=== PATIENT | female | born 1930 | race Caucasian/White ===

== ENCOUNTER 2016-04-10 16:13 | Emergency (ER) | payer MEDICARE ==
[2016-04-10 16:15] VITALS: BP 102/56; PULSE 104; RESP 18; TEMP 98.3; O2SAT 95
--- NOTE | 2016-04-10 16:50 | PD ---
HPI Chief Complaint: General Weakness Time Seen by Provider: 16:50 Travel History International Travel<30 days: No Contact w/Intl Traveler<30days: No Traveled to known affect area: No History of Present Illness HPI 86 year old female with history of Alzheimer's disease presents to the emergency department with her son for evaluation. The son states that they are on vacation here in the mother has not gotten out of bed for 3 days. He states that she has not been eating or drinking. He is concerned that something may be wrong. He states she has not been recently ill. She is typically ambulatory but seems to have decreased strength and stamina lately. He states that she does not have a primary care provider back home but they plan to return home on Monday or of this week.. The patient reports no pain. States that she is fine. She has no other history to report. PFSH Past Medical History Alzheimer's Disease: Yes Menopausal: Yes Past Surgical History Appendectomy: Yes Tonsillectomy: Yes Social History Alcohol Use: No Tobacco Use: No Substance Use: No Allergies-Medications (Allergen,Severity, Reaction): Coded Allergies: No Known Allergies (Unverified , 04/10/16) Reported Meds & Prescriptions Reported Meds & Active Scripts Active Keflex (Cephalexin) 500 Mg Cap 500 Mg PO Q12H 7 Days Reported Fosamax (Alendronate Sodium) 70 Mg Tab 70 Mg PO Q7D Donepezil 5 Mg Tab 5 Mg PO DAILY Review of Systems Except as stated in HPI: all other systems reviewed are Neg Physical Exam Narrative GENERAL: Well-nourished, elderly female patient, in no acute distress. SKIN: Warm and dry. HEAD: Atraumatic. Normocephalic. EYES: Pupils equal and round. No scleral icterus. No injection or drainage. ENT: No nasal bleeding or discharge. Mucous membranes pink and moist. NECK: Trachea midline. No JVD. CARDIOVASCULAR: Elevated rate and rhythm. No murmur appreciated. RESPIRATORY: No accessory muscle use. Clear to auscultation. Breath sounds equal bilaterally. GASTROINTESTINAL: Abdomen soft, non-tender, nondistended. Hepatic and splenic margins not palpable. MUSCULOSKELETAL: No obvious deformities. No clubbing. No cyanosis. No edema. NEUROLOGICAL: Awake and alert. No obvious cranial nerve deficits. Motor grossly within normal limits. Normal speech. Data Data Last Documented VS Vital Signs Date Time Temp Pulse Resp B/P Pulse Ox O2 Delivery O2 Flow Rate FiO2 04/10/16 19:48 72 15 116/65 93 04/10/16 17:01 Nasal Cannula 2 04/10/16 16:15 98.3 Orders Electrocardiogram (04/10/16 16:47) Basic Metabolic Panel (Bmp) (04/10/16 16:47) Ckmb (Isoenzyme) Profile (04/10/16 16:47) Complete Blood Count With Diff (04/10/16 16:47) Magnesium (Mg) (04/10/16 16:47) Prothrombin Time / Inr (Pt) (04/10/16 16:47) Act Partial Throm Time (Ptt) (04/10/16 16:47) Troponin I (04/10/16 16:47) Chest, Single Ap (04/10/16 16:47) Ecg Monitoring (04/10/16 16:47) Bilateral Bp Monitoring (04/10/16 16:47) Iv Access Insert/Monitor (04/10/16 16:47) Oximetry (04/10/16 16:47) Oxygen Administration (04/10/16 16:47) Sodium Chloride 0.9% Flush (Ns Flush) (04/10/16 17:00) Ct Brain W/O Iv Contrast(Rout) (04/10/16 ) Urinalysis - C+S If Indicated (04/10/16 16:47) Cath For Specimen (04/10/16 16:47) CKMB (04/10/16 17:15) CKMB% (04/10/16 17:15) Urine Culture (04/10/16 17:40) Sodium Chlorid 0.9% 500 Ml Inj (Ns 500 M (04/10/16 18:15) Ceftriaxone Inj (Rocephin Inj) (04/10/16 18:15) Labs Laboratory Tests Test 04/10/16 04/10/16 17:15 17:40 White Blood Count 6.6 TH/MM3 Red Blood Count 4.29 MIL/MM3 Hemoglobin 12.9 GM/DL Hematocrit 37.9 % Mean Corpuscular Volume 88.3 FL Mean Corpuscular Hemoglobin 30.0 PG Mean Corpuscular Hemoglobin 34.0 % Concent Red Cell Distribution Width 13.5 % Platelet Count 177 TH/MM3 Mean Platelet Volume 8.2 FL Neutrophils (%) (Auto) 69.7 % Lymphocytes (%) (Auto) 20.3 % Monocytes (%) (Auto) 9.2 % Eosinophils (%) (Auto) 0.4 % Basophils (%) (Auto) 0.4 % Neutrophils # (Auto) 4.6 TH/MM3 Lymphocytes # (Auto) 1.3 TH/MM3 Monocytes # (Auto) 0.6 TH/MM3 Eosinophils # (Auto) 0.0 TH/MM3 Basophils # (Auto) 0.0 TH/MM3 CBC Comment DIFF FINAL Differential Comment Prothrombin Time 10.8 SEC Prothromb Time International 1.0 RATIO Ratio Activated Partial 30.3 SEC Thromboplast Time Sodium Level 139 MEQ/L Potassium Level 4.1 MEQ/L Chloride Level 105 MEQ/L Carbon Dioxide Level 24.9 MEQ/L Anion Gap 9 MEQ/L Blood Urea Nitrogen 29 MG/DL Creatinine 0.97 MG/DL Estimat Glomerular Filtration 54 ML/MIN Rate Random Glucose 108 MG/DL Calcium Level 8.7 MG/DL Magnesium Level 2.0 MG/DL Total Creatine Kinase 109 U/L Creatine Kinase MB 0.7 NG/ML Troponin I LESS THAN 0.02 NG/ML Urine Color YELLOW Urine Turbidity HAZY Urine pH 5.5 Urine Specific [place] 1.021 Urine Protein 30 mg/dL Urine Glucose (UA) NEG mg/dL Urine Ketones NEG mg/dL Urine Occult Blood SMALL Urine Nitrite POS Urine Bilirubin NEG Urine Urobilinogen LESS THAN 2.0 MG/DL Urine Leukocyte Esterase SMALL Urine RBC 1 /hpf Urine WBC 5 /hpf Urine Squamous Epithelial 3 /hpf Cells Urine Bacteria MANY /hpf Urine Hyaline Casts 4 /lpf Urine Mucus MOD /lpf Microscopic Urinalysis Comment CATH-CULTURE IND MDM Medical Decision Making Medical Screen Exam Complete: Yes Emergency Medical Condition: Yes Medical Record Reviewed: Yes Differential Diagnosis Alzheimer disease versus electrolyte abnormality versus dehydration versus UTI Narrative Course 86 year-old female presents to emergency department for evaluation. Patient appears well and without distress. She has pleasant. She initially has slightly elevated heart rate. Vital signs otherwise stable. CBC and BMP are without acute concern except patient does have slightly elevated BUN at 29.. Troponin is less than 0.02. Urinalysis is hazy with 30 proteinuria, small occult blood, positive nitrate, small leukocyte esterase, many bacteria, moderate mucus. Culture is indicated. Patient is given 1 g of Rocephin here in the emergency department and she'll be discharged home on Keflex. I have discussed with the son the importance of following up with a primary care provider upon return home. He agrees to return immediately with any acute worsening of symptoms. Diagnosis Primary Impression: Generalized weakness Additional Impression: UTI (urinary tract infection) Qualified Code: N39.0 - Urinary tract infection without hematuria, site unspecified Referrals: Primary Care Physician Patient Instructions: General Instructions, Urinary Tract Infection in Women ( ED) Additional Instructions: Maintain adequate oral hydration Follow-up your primary care provider Return immediately to the emergency department with any acute worsening of symptoms Med/Other Pt SpecificInfo: Prescription(s) given Scripts Cephalexin (Keflex)500 Mg [id number] Mg PO Q12H 7 Days Ref 0 Prov:Lucila Toscano 04/10/16 Disposition: 01 DISCHARGE HOME Condition: Stable Lucila Toscano Apr 10, 2016 16:50
[2016-04-10 16:57] VITALS: BP_SYST 100; BP_SYST 99; BP_DIAS 63; BP_DIAS 66
[2016-04-10] MEDS ORDERED: SODIUM CHLORIDE 0.9% FLUSH 5 ML FLUSH IVF PRN (17:00)
[2016-04-10 17:01] VITALS: RESP 16; O2SAT 96
--- NOTE | 2016-04-10 17:06 | RADRPT ---
EXAM DATE/TIME: 04/10/2016 16:49 [facility] COMPARISON: No previous studies available for comparison. INDICATIONS : General weakness and confusion. MEDICAL HISTORY : None. SURGICAL HISTORY : None. ENCOUNTER: Initial ACUITY: 1 day PAIN SCORE: 0/10 LOCATION: Bilateral chest FINDINGS: The lungs are hyperinflated but clear. The heart and pulmonary vascularity are normal. Degenerative changes are seen about the left shoulder. CONCLUSION: Hyperinflated, otherwise negative. Cali Chong MD FACR on April 10, 2016 at 17:04 Board Certified Radiologist. This report was verified electronically.
[2016-04-10 17:27] LABS: AUTOMATED NEUTROPHIL # 4.6 TH/MM3 (1.8-7.7); BASOPHIL % 0.4 % (0.0-2.0); EOSINOPHIL % 0.4 % (0.0-4.0); HEMATOCRIT 37.9 % (35.0-46.0); HEMO FLAGS DIFF FINAL; LYMPH % 20.3 % (9.0-44.0); LYMPHOCYTE # 1.3 TH/MM3 (1.0-4.8); MEAN CELL VOLUME 88.3 FL (80.0-100.0); MONO % 9.2 % (0.0-8.0); NEUT % 69.7 % (16.0-70.0); PLATELET COUNT 177 TH/MM3 (150-450); RED BLOOD COUNT 4.29 MIL/MM3 (4.00-5.30); RED CELL DISTRIBUTION WIDTH 13.5 % (11.6-17.2); WHITE BLOOD COUNT 6.6 TH/MM3 (4.0-11.0)
[2016-04-10 17:42] LABS: APTT (PATIENT) 30.3 SEC (24.3-30.1); PROTHROMBIN TIME - PATIENT 10.8 SEC (9.8-11.6)
--- NOTE | 2016-04-10 17:43 | RADRPT ---
EXAM DATE/TIME: 04/10/2016 17:36 [facility] COMPARISON: No previous studies available for comparison. INDICATIONS : Dizziness, loss of appitite. RADIATION DOSE: 29.28 CTDIvol (mGy) MEDICAL HISTORY : Alzheimer's SURGICAL HISTORY : Tonsillectomy. ENCOUNTER: Initial ACUITY: 1 day PAIN SCALE: Non-responsive LOCATION: cranial TECHNIQUE: Multiple contiguous axial images were obtained of the head. Using automated exposure control and adj ustment of the mA and/or kV according to patient size, radiation dose was kept as low as reasonably a chievable to obtain optimal diagnostic quality images. FINDINGS: CEREBRUM: The ventricles are normal for age. No evidence of midline shift, mass lesion, hemorrhage or acute in farction. No extra-axial fluid collections are seen. POSTERIOR FOSSA: The cerebellum and brainstem are intact. The 4th ventricle is midline. The cerebellopontine angle i s unremarkable. EXTRACRANIAL: The visualized portion of the orbits is intact. SKULL: The calvaria is intact. No evidence of skull fracture. CONCLUSION: Negative for an acute process. Cali Chong MD FACR on April 10, 2016 at 17:41 Board Certified Radiologist. This report was verified electronically.
[2016-04-10 17:51] LABS: ANION GAP 9 MEQ/L (5-15); BICARBONATE 24.9 MEQ/L (21.0-32.0); BLOOD UREA NITROGEN 29 MG/DL (7-18); CHLORIDE 105 MEQ/L (98-107); GLOMERULAR FILTRATION RATE 54 ML/MIN (>89); POTASSIUM 4.1 MEQ/L (3.5-5.1); SODIUM (NA) 139 MEQ/L (136-145)
[2016-04-10 17:54] LABS: CREATINE KINASE 109 U/L (26-192)
[2016-04-10 17:59] LABS: BACTERIA, URINE MANY /hpf; BLOOD, URINE SMALL (NEG); COMMENT (UR) CATH-CULTURE IND; CULTURE IF INDICATED CATH CULTURE IND; GLUCOSE,URINE NEG (NEG); HYALINE CAST, URINE 4 /lpf (RARE); KETONE, URINE NEG (NEG); MUCUS URINE MOD /lpf (OCC); NITRITE,URINE POS (NEG); PH, URINE 5.5 (5.0-8.5); SQUAMOUS EPITHELIAL CELL URINE 3 /hpf (0-5); URINE COLOR YELLOW (YELLW/STRAW)
[2016-04-10 18:07] LABS: CKMB 0.7 NG/ML (0.5-3.6)
[2016-04-10] MEDS ORDERED: cefTRIAXone INJ 1,000 MG in SODIUM CHLORIDE 0.9% INJ 100 ML IV ONE (18:15)
[2016-04-10] MEDS ORDERED: SODIUM CHLORID 0.9% 500 ML INJ 500 ML IV ONE (18:15)
[2016-04-10] MEDS ORDERED: DONE5TAB7 PO (18:26)
[2016-04-10] MEDS ORDERED: FOSA70TA PO (18:26)
[2016-04-10] MEDS ORDERED: CEPH-460 PO (19:35)
[2016-04-10 19:48] VITALS: BP 116/65
--- NOTE | 2016-04-11 19:34 | EKG ---
Date Performed: 04/10/2016 Time Performed: 18:04:07 PTAGE: 86 years EKG: Sinus rhythm NORMAL ECG NO PREVIOUS TRACING DOCTOR: Sunday Ndiaye Interpretating Date/Time 04/11/2016 19:31:40
== END 2016-04-10 20:13 | disposition home or self-care (01) ==
LOC: NEPC 16:13
DX: R53.1 Weakness (principal); N39.0 Urinary tract infection, site not specified; B96.1 Klebsiella pneumoniae [K. pneumoniae] as the cause of diseases classified elsewhere; G30.9 Alzheimer's disease, unspecified; R00.0 Tachycardia, unspecified; R94.4 Abnormal results of kidney function studies
CPT/HCPCS: 70450; 71010; 80048; 81001; 82550; 82552; 83735; 84484; 85025; 85610; 85730; 87077; 87086; 87186; 93005; 96365; 99285; J0696; J7040; P9612